=== PATIENT | female | born 1985 | race African-American/Black ===

== ENCOUNTER 2018-08-30 13:23 | Emergency (ER) | payer SELFPAY ==
--- NOTE | 2018-08-30 14:18 | PDOC ---
Rapid Medical Evaluation Time Seen by Provider: 08/30/18 14:15 Medical Evaluation: Allergies Allergy/AdvReac Type Severity Reaction Status Date / Time No Known Allergies Allergy Verified 11/13/13 15:10 08/30/18 14:15 I performed a brief in-person evaluation of this patient. Chief complaint: Heavy menstrual bleeding (8 pads today), weakness, dizziness, pelvic pain. Hx fibroids. I have ordered the following: CBC, CMP, PT/INR, T&S, serum preg, transvaginal u/ s Pertinent physical exam findings: Pale conjunctivae. RRR, S1/S2, clear lungs. Patient will proceed to the ED for further evaluation. Discharge Disposition - Diagnosis Vaginal bleeding - Referrals - Patient Instructions - Post Discharge Activity
[2018-08-30 14:19] VITALS: BMI 28.9
[2018-08-30 15:02] LABS: INR 1.03 (0.83-1.09); PROTHROMBIN TIME (PATIENT) 12.1 SEC (9.7-13.0)
[2018-08-30 15:15] LABS: BASO % 0.3 % (0-2.0); EOS % 0.2 % (0-4.5); HEMATOCRIT 30.3 % (32.4-45.2); HEMOGLOBIN 9.7 GM/dL (10.7-15.3); LYMPH % 8.3 % (8-40); MCH 20.5 pg (25.7-33.7); MCHC 31.9 g/dl (32.0-36.0); MEAN CELL VOLUME 64.3 fl (80-96); MEAN PLT VOLUME 8.9 fl (7.5-11.1); NEUT % 88.2 % (42.8-82.8); PLATELET COUNT 325 K/MM3 (134-434); RBC 4.71 M/mm3 (3.60-5.2); RDW 23.3 % (11.6-15.6); WHITE BLOOD COUNT 10.9 K/mm3 (4.0-10.0)
[2018-08-30 15:23] LABS: ALBUMIN 3.6 g/dl (3.4-5.0); ALK PHOS 60 U/L (45-117); ANION GAP 5 MMOL/L (8-16); BILIRUBIN,TOTAL 0.3 mg/dL (0.2-1); BLOOD UREA NITROGEN 14 mg/dL (7-18); CALCIUM 9.1 mg/dL (8.5-10.1); CHLORIDE 105 mmol/L (98-107); CO2 26 mmol/L (21-32); CREATININE 0.8 mg/dL (0.55-1.3); GLUCOSE,RANDOM 115 mg/dL (74-106); POTASSIUM 4.1 mmol/L (3.5-5.1); SGOT/AST 14 U/L (15-37); SGPT/ALT 17 U/L (13-61); SODIUM 136 mmol/L (136-145); TOT PROT 8.2 g/dl (6.4-8.2)
--- NOTE | 2018-08-30 15:28 | PDOC ---
History of Present Illness - General Chief Complaint: Pain Stated Complaint: ABD PAIN Time Seen by Provider: 08/30/18 14:15 - History of Present Illness Initial Comments: Мария Bee is a 33yo woman with a PMH of seasonal asthma and uterine fibroids s /p myomectomy (2013) who presents with return of her heavy menstrual bleeding, severe cramps, and unusual fatigue today. She states that after her procedure in 2013, her periods were much less severe and with less cramping. Over the past months, the severity of the bleeding and cramping has slowly increased. Currently, she has the heaviest bleeding that she has recently experienced and she felt lightheaded/weak today. She states that she started mestruating yesterday, but the bleeding was very light until about 2am. Since that time, she has soaked through at least one pad per hour. She went to work and felt that she could not keep her eyes open, so came to the ED. She is concerned that she is losing too much blood. Also, her cramping did not improve with extra-strength Tylenol. She has not followed up with gynecology due to lack of insurance. She previously saw Dr Aguirre but has neither primary care nor gynecology since that time. She denies any symptoms prior to today including fever/chills, abdominal pain, nausea/vomiting, change in bowel habits, or dysuria. Past History - Past Medical History Allergies/Adverse Reactions: Allergies Allergy/AdvReac Type Severity Reaction Status Date / Time No Known Allergies Allergy Verified 08/30/18 14:19 Home Medications: Ambulatory Orders NK [No Known Home Medication] 08/30/18 Anemia: Yes Asthma: Yes COPD: No Thyroid Disease: No Other medical history: FIBROIDS - Reproductive History Is Patient Now?: No (#): 1 Para: 0 Therapeutic (s) & number: Yes - Immunization History Immunization Up to Date: Yes - Suicide/Smoking/Psychosocial Hx Smoking History: Never smoked Have you smoked in the past 12 months: No Information on smoking cessation initiated: No Hx Alcohol Use: Yes (SOCIAL) Drug/Substance Use Hx: Yes (MARIJUANA) Substance Use Type: Alcohol Review of Systems - Review of Systems Comments:: General: No fevers, no chills, no weight or appetite change, no malaise HEENT: No changes in vision, no changes in hearing, no congestion, no sore throat CV: No chest pain, no palpitations, no LE edema Pulm: No SOB, no cough, no wheezing GI: No nausea or vomiting, no change in bowel habits, no melena : No frequency, no urgency, no dysuria. +fibroids, +heavy menstruation Musc: No back pain, no joint swelling, no recent injury Skin: No rash, no lesions, no erythema Endo: No excessive thirst, no heat/cold intolerance Heme: No unusual bruising or bleeding, no swollen glands Neuro: No syncope, no numbness/tingling, no focal weakness Vasc: No claudication Psych: No recent change in mood, no SI or HI *Physical Exam - Vital Signs Last Vital Signs Temp Pulse Resp BP Pulse Ox 98.1 F 82 18 137/82 100 08/30/18 14:15 08/30/18 14:15 08/30/18 14:15 08/30/18 14:15 08/30/18 14:15 - Physical Exam Comments: General: Comfortable, no acute distress HEENT: PERRL, EOMI, MMM, voice normal, normal neck ROM, no LAD Cards: RRR, no murmur appreciated Pulm: Comfortable on room air, clear to auscultation bilaterally Abd: Firm in midline in lower abdomen, no clear uterine borders palpated. Mildly TTP around umbilicus. : No CVA tenderness. Ext: Atraumatic. No LE edema. ROM intact. Strength 5/5 and equal bilaterally Vasc: Extremities WWP. Skin: Normal color, no rashes or lesions Neuro: A&Ox3, CN grossly intact, normal speech, motor/sensory grossly intact and symmetric Psych: Mood appropriate to situation Moderate Sedation - Procedure Monitoring Vital Signs: Procedure Monitoring Vital Signs Temperature 98.1 F 08/30/18 14:15 Pulse Rate 82 08/30/18 14:15 Respiratory Rate 18 08/30/18 14:15 Blood Pressure 137/82 08/30/18 14:15 O2 Sat by Pulse Oximetry (%) 100 08/30/18 14:15 ED Treatment Course - LABORATORY CBC & Chemistry Diagram: 08/30/18 14:35 08/30/18 14:35 - ADDITIONAL ORDERS Additional order review: Laboratory Results 08/30/18 14:35 PT with INR 12.10 INR 1.03 08/30/18 14:35 RBC 4.71 MCV 64.3 L MCHC 31.9 L RDW 23.3 H MPV 8.9 Neutrophils % 88.2 H D Lymphocytes % 8.3 D Monocytes % 3.0 L Eosinophils % 0.2 D Basophils % 0.3 Medical Decision Making - Medical Decision Making 08/30/18 15:21 Мария Bee is a 33yo woman with a PMH of seasonal asthma and uterine fibroids s /p myomectomy (2013) who presents with return of her heavy menstrual bleeding, severe cramps, and unusual fatigue today. She has not followed up with gynecology due to lack of insurance. - Labs ordered in [facility]. CBC completed, mild anemia with hbg 9.7. Baseline appears to be in the mid 10's per chart review. - Chemistry and serum pending - Has taken acetaminophen at home. If preg negative, will give ibuprofen for pain - Will need to complete vaginal exam 08/30/18 15:36 - Vaginal exam notable for dark blood consistent w/ menstruation. No cervical motion tenderness. No lesions, abrasions, or other sources of bleeding - test negative. Will give ibuprofen for continued pain - Chemistry without concerning abnormalities 08/30/18 16:54 - Bedside US completed by Dr Velez and Dr Ward. Enlarged uterus, likely fibroids - Sent for formal US 08/30/18 17:29 - US completed. Shows enlarged uterus with multiple fibroids - Urine sent to lab. Appears cloudy; culture ordered 08/30/18 18:24 - UA negative - Ms Bee feels significantly improved, minimal pain, ready to go home. - Will d/c home. Discussed home care, return precautions, follow up. Ms Bee states understanding and agreement with the plan. Discussed with Dr Culver. Archana Lugo PGY1 *DC/Admit/Observation/Transfer Diagnosis at time of Disposition: Vaginal bleeding, Leiomyoma - Discharge Dispostion Disposition: HOME Condition at time of disposition: Stable Decision to Admit order: No - Referrals Referrals: [facility] [place] [Provider Group] Yancy Aguirre MD [Staff Physician] - Tremaine Brar MD [Staff Physician] - - Patient Instructions Printed Discharge Instructions: DI for Uterine Fibroids Additional Instructions: Discharge Instructions: You were seen in the emergency department for heavy menstrual bleeding and abdominal cramping. You had blood tests showing mild anemia and an ultrasound showing several uterine fibroids Home Care and Follow Up: - You may use over the counter medications as needed for pain at home. 600mg ibuprofen (Motrin or Advil) or 650-1000mg acetaminophen (Tylenol) can be used every 6-8 hours. If needed for continued pain, these medications may be alternated every 3-4 hours. For example, you received ibuprofen at 9pm, so you may take acetaminophen at midnight, ibuprofen at 3am, acetaminophen at 6am. - Consider using a heating pad to help with your pain - You should follow up with OB within the next 1-2 weeks for evaluation. You have been referred to Dr Aguirre - You should also establish care with primary care. You have been referred to the [facility]. - Seek immediate medical care if your symptoms worsen, your pain is severe after taking medication, you soak through multiple menstrual pads in an hour, you have lightheadedness or fainting, or you have any medical emergency. - Post Discharge Activity Forms/Work/School Notes: Back to Work
[2018-08-30] MEDS ORDERED: IBUPROFEN 400 MG TABLET (FP) PO ONE ×2 (15:35→15:59)
[2018-08-30 15:40] LABS: ANISOCYTOSIS 2+; MACROCYTOSIS 0; PLATELET ESTIMATE NORMAL; TARGET CELLS 1+
--- NOTE | 2018-08-30 16:24 | PDOC ---
Attending Attestation - Resident Resident Name: Archana Lugo - HPI HPI: 08/30/18 16:27 The patient is a 33 year old female, with a significant past medical history of fibroids, who presents to the emergency department with heavy menstrual bleeding soaking 8 pads today with associated generalized weakness, dizziness, pelvic pain. The patient denies chest pain, shortness of breath, headache and dizziness. The patient denies fever, chills, nausea, vomit, diarrhea and constipation. The patient denies dysuria, frequency, urgency and hematuria. Allergies: NKDA <Ilsa Auguste - Last Filed: 08/30/18 16:27> - Physicial Exam PE: 08/30/18 16:53 vss palpable uterus above symphysis pubis, discomfort but no guarding/rebound. no cvat pelvic per resident - Medical Decision Making 08/30/18 16:54 33y/o F with h/o fibroids p/w menses and heavy bleeding, HD stable. 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
[2018-08-30 17:33] LABS: URINE APPEARANCE CLOUDY; URINE BILIRUBIN NEGATIVE (<2.0 mg/dL); URINE COLOR YELLOW; URINE GLUCOSE (UA) NEGATIVE (NEGATIVE); URINE KETONE NEGATIVE (NEGATIVE); URINE LEUK ESTERASE NEGATIVE (NEGATIVE); URINE NITRITE NEGATIVE (NEGATIVE); URINE PROTEIN 1+ (NEGATIVE); URINE UROBILINOGEN NEGATIVE mg/dL (0.2-1.0)
[2018-08-30 17:47] LABS: EPI CELLS RARE /HPF (FEW); URINE MUCUS RARE; YEAST FEW
[2018-08-30 18:23] VITALS: BP 126/74; PULSE 80; TEMP 98.6
== END 2018-08-30 18:24 | disposition home or self-care (01) ==
LOC: JER 13:23
DX: D25.9 Leiomyoma of uterus, unspecified (principal); N92.0 Excessive and frequent menstruation with regular cycle
CPT/HCPCS: 36415; 76830-TC; 80053; 81003; 81015; 84703; 85025; 85610; 86850; 86900; 86901; 87086; 99282-25

== ENCOUNTER 2020-08-31 02:47 | Inpatient (IN) | payer OTHER ==
[2020-08-31] MEDS ORDERED: methylPREDNISolone NA SUCC 125 MG/2 ML VIAL IVPUSH ONE (03:01)
[2020-08-31] MEDS ORDERED: RACEPINEPHRINE IH SOL 2.25% 11.25 MG/0.5 ML VIAL IH ONE (03:01)
[2020-08-31] MEDS ORDERED: MAGNESIUM SULF 50% (8.12 MEQ/2 ML-1 GM VIAL) IVPB ONE (03:01)
[2020-08-31 03:04] VITALS: BMI 29.1
[2020-08-31] MEDS ORDERED: methylPREDNISolone NA SUCC 125 MG/2 ML VIAL ONE (03:06)
[2020-08-31] MEDS ORDERED: RACEPINEPHRINE IH SOL 2.25% 11.25 MG/0.5 ML VIAL NEB ONE (03:06)
[2020-08-31] MEDS ORDERED: MAGNESIUM SULFATE IN WATER 2 GM/50 ML IVPB IVPB ONE (03:06)
[2020-08-31] MEDS: ALBUTEROL SO4 2.5/IPRATROPIUM 0.5 INH SOL 3 ML VIAL.NEB. NEB SCH ×8 (03:12→20:10)
[2020-08-31 03:18] LABS: MCHC 28.9 g/dl (32.0-36.0); MEAN CELL VOLUME 56.1 fl (80-96); MEAN PLT VOLUME 8.7 fl (7.5-11.1); PLATELET COUNT 408 K/MM3 (134-434); RBC 4.27 M/mm3 (3.60-5.2); RDW 20.3 % (11.6-15.6); WHITE BLOOD COUNT 11.9 K/mm3 (4.0-10.0)
[2020-08-31 03:27] LABS: MCH 16.2 pg (25.7-33.7)
[2020-08-31 03:29] LABS: HEMOGLOBIN 6.9 GM/dL (10.7-15.3)
[2020-08-31 03:33] LABS: POTASSIUM 3.7 mmol/L (3.5-5.1)
[2020-08-31 03:35] LABS: ALBUMIN 3.7 g/dl (3.4-5.0); CALCIUM 8.8 mg/dL (8.5-10.1)
[2020-08-31 03:36] LABS: BLOOD UREA NITROGEN 10.8 mg/dL (7-18)
[2020-08-31 03:39] LABS: CREATININE 0.9 mg/dL (0.55-1.3)
[2020-08-31 03:40] LABS: BILIRUBIN,TOTAL 0.6 mg/dL (0.2-1); TOT PROT 8.5 g/dl (6.4-8.2)
[2020-08-31 03:59] LABS: INR 1.08 (0.83-1.09)
[2020-08-31 04:02] LABS: ACTIVATED PTT 26.9 SECONDS (25.2-36.5)
[2020-08-31 04:38] LABS: ANISOCYTOSIS 1+; TARGET CELLS 1+
[2020-08-31] MEDS ORDERED: ALBUTEROL SO4 2.5/IPRATROPIUM 0.5 INH SOL 3 ML VIAL.NEB. NEB ONE ×2 (08:07→11:50)
[2020-08-31] MEDS ORDERED: AZITHROMYCIN IVPB 500 MG/250 ML BAG IVPB SCH (10:00)
[2020-08-31] MEDS ORDERED: ENOXAPARIN NA (PORCINE) 40 MG/0.4 ML DISP.SYRIN SQ SCH (10:00)
[2020-08-31 11:58] LABS: MAGNESIUM 1.8 mg/dL (1.8-2.4)
[2020-08-31 12:02] LABS: PHOSPHOROUS 3.1 mg/dL (2.5-4.9)
[2020-08-31] MEDS ORDERED: methylPREDNISolone NA SUCC 40 MG/1 ML VIAL ONE (12:05)
[2020-08-31] MEDS: methylPREDNISolone NA SUCC 40 MG/1 ML VIAL IVPUSH SCH ×2 (12:11→17:13)
[2020-08-31] MEDS: BUDESONIDE/FORMETEROL FUMARATE 160/4.5 mcg INHALER IH SCH ×2 (12:12→22:39)
[2020-08-31] MEDS ORDERED: ALBUTEROL SO4 HFA INHALER IH PRN (13:59)
[2020-08-31 15:35] LABS: HEMATOCRIT 27.5 % (32.4-45.2); HEMOGLOBIN 8.1 GM/dL (10.7-15.3); MCHC 29.5 g/dl (32.0-36.0); MEAN PLT VOLUME 8.8 fl (7.5-11.1); PLATELET COUNT 416 K/MM3 (134-434); RBC 4.66 M/mm3 (3.60-5.2); RDW 23.5 % (11.6-15.6); WHITE BLOOD COUNT 12.4 K/mm3 (4.0-10.0)
[2020-08-31 15:49] LABS: MCH 17.4 pg (25.7-33.7)
[2020-08-31] MEDS ORDERED: ACETAMINOPHEN 1000 MG/100 ML VIAL (NON FORMULARY) IVPB PRN (17:06)
[2020-08-31] MEDS ORDERED: MONTELUKAST NA 5 MG TAB.CHEW PO SCH (22:00)
[2020-08-31] MEDS: MONTELUKAST NA 10 MG TABLET PO SCH (22:39)
[2020-09-01] MEDS: methylPREDNISolone NA SUCC 40 MG/1 ML VIAL IVPUSH SCH ×3 (02:12→17:09)
[2020-09-01 06:47] LABS: HEMATOCRIT 29.8 % (32.4-45.2); HEMOGLOBIN 9.3 GM/dL (10.7-15.3); MCHC 31.2 g/dl (32.0-36.0); MEAN CELL VOLUME 60.7 fl (80-96); MEAN PLT VOLUME 8.5 fl (7.5-11.1); PLATELET COUNT 396 K/MM3 (134-434); RBC 4.91 M/mm3 (3.60-5.2); RDW 28.7 % (11.6-15.6)
[2020-09-01 06:52] LABS: MCH 18.9 pg (25.7-33.7)
[2020-09-01] MEDS: ALBUTEROL SO4 2.5/IPRATROPIUM 0.5 INH SOL 3 ML VIAL.NEB. NEB SCH ×4 (08:30→20:10)
[2020-09-01] MEDS: BUDESONIDE/FORMETEROL FUMARATE 160/4.5 mcg INHALER IH SCH ×2 (09:59→21:47)
[2020-09-01] MEDS: MONTELUKAST NA 10 MG TABLET PO SCH (21:48)
[2020-09-02] MEDS: methylPREDNISolone NA SUCC 40 MG/1 ML VIAL IVPUSH SCH ×3 (02:13→17:11)
[2020-09-02] MEDS ORDERED: PT OWN MED DRAWER 7, Y5N ONE (06:28)
[2020-09-02] MEDS ORDERED: CEFAZOLIN 2 GM in DEXTROSE 5%-WATER - 100 ML IVPB ONE (07:00)
[2020-09-02] MEDS: PHENAZOPYRIDINE HCL 100 MG TABLET (FP) PO SCH ×3 (07:25→18:24)
[2020-09-02 07:31] LABS: HEMOGLOBIN 9.2 GM/dL (10.7-15.3); MCHC 30.6 g/dl (32.0-36.0); MEAN CELL VOLUME 61.3 fl (80-96); MEAN PLT VOLUME 8.5 fl (7.5-11.1); PLATELET COUNT 367 K/MM3 (134-434); RBC 4.89 M/mm3 (3.60-5.2); RDW 28.1 % (11.6-15.6); WHITE BLOOD COUNT 13.6 K/mm3 (4.0-10.0)
[2020-09-02 07:34] LABS: MCH 18.7 pg (25.7-33.7)
[2020-09-02 07:52] LABS: POTASSIUM 4.5 mmol/L (3.5-5.1)
[2020-09-02 07:58] LABS: ALBUMIN 3.5 g/dl (3.4-5.0); BLOOD UREA NITROGEN 13.4 mg/dL (7-18); CALCIUM 9.4 mg/dL (8.5-10.1)
[2020-09-02 07:59] LABS: MAGNESIUM 2.4 mg/dL (1.8-2.4)
[2020-09-02 08:01] LABS: BILIRUBIN,TOTAL 0.7 mg/dL (0.2-1)
[2020-09-02 08:02] LABS: TOT PROT 8.4 g/dl (6.4-8.2)
[2020-09-02] MEDS: ALBUTEROL SO4 2.5/IPRATROPIUM 0.5 INH SOL 3 ML VIAL.NEB. NEB SCH ×4 (08:17→20:13)
[2020-09-02] MEDS: BUDESONIDE/FORMETEROL FUMARATE 160/4.5 mcg INHALER IH SCH ×2 (09:03→21:00)
[2020-09-02] MEDS: MONTELUKAST NA 10 MG TABLET PO SCH (21:00)
[2020-09-03] MEDS: methylPREDNISolone NA SUCC 40 MG/1 ML VIAL IVPUSH SCH ×3 (01:04→21:54)
[2020-09-03 07:21] LABS: HEMOGLOBIN 9.1 GM/dL (10.7-15.3); MCHC 30.3 g/dl (32.0-36.0); MEAN CELL VOLUME 61.5 fl (80-96); MEAN PLT VOLUME 8.7 fl (7.5-11.1); PLATELET COUNT 335 K/MM3 (134-434); RBC 4.88 M/mm3 (3.60-5.2); WHITE BLOOD COUNT 12.9 K/mm3 (4.0-10.0)
[2020-09-03 07:26] LABS: INR 1.04 (0.83-1.09); PROTHROMBIN TIME (PATIENT) 12.8 SEC (9.7-13.0)
[2020-09-03 07:29] LABS: ACTIVATED PTT 24.8 SECONDS (25.2-36.5)
[2020-09-03] MEDS ORDERED: CEFAZOLIN 2 GM/D5W 2 GM/50 ML ML IVPB ONE (07:30)
[2020-09-03 07:35] LABS: MCH 18.6 pg (25.7-33.7)
[2020-09-03 07:39] LABS: POTASSIUM 4.6 mmol/L (3.5-5.1)
[2020-09-03] MEDS: ALBUTEROL SO4 2.5/IPRATROPIUM 0.5 INH SOL 3 ML VIAL.NEB. NEB SCH ×5 (07:45→19:50)
[2020-09-03 08:08] LABS: ALBUMIN 3.4 g/dl (3.4-5.0)
[2020-09-03 08:09] LABS: BLOOD UREA NITROGEN 15.6 mg/dL (7-18); CALCIUM 9.5 mg/dL (8.5-10.1)
[2020-09-03 08:11] LABS: CREATININE 0.8 mg/dL (0.55-1.3)
[2020-09-03 08:13] LABS: BILIRUBIN,TOTAL 0.5 mg/dL (0.2-1)
[2020-09-03] MEDS ORDERED: MIDAZOLAM HCL 2 MG/2 ML SINGLE DOSE VIAL ONE ×4 (08:35→10:53)
[2020-09-03] MEDS: PHENAZOPYRIDINE HCL 100 MG TABLET (FP) PO SCH ×3 (09:00→17:35)
[2020-09-03] MEDS: BUDESONIDE/FORMETEROL FUMARATE 160/4.5 mcg INHALER IH SCH ×2 (09:01→21:53)
[2020-09-03] MEDS ORDERED: PROPOFOL 20 ML ONE ×3 (09:05→10:53)
[2020-09-03] MEDS ORDERED: SUCCINYLCHOLINE CHLORIDE 200 MG/10 ML SYRINGE ONE (09:05)
[2020-09-03] MEDS ORDERED: BUPIVACAINE HCL 50 ML ONE (09:07)
[2020-09-03] MEDS ORDERED: ceFAZolin SODIUM 1 GM VIAL IVPB ONE (09:24)
[2020-09-03] MEDS ORDERED: DEXAMETHASONE SOD PHOSPHATE 4 MG/1 ML VIAL ONE (10:07)
[2020-09-03] MEDS ORDERED: ACETAMINOPHEN INJECTION 100 ML IVPB ONE (10:52)
[2020-09-03] MEDS ORDERED: KETOROLAC TROMETHAMINE 30 MG/1 ML VIAL ONE (11:08)
[2020-09-03] MEDS ORDERED: ONDANSETRON 4 MG/2 ML VIAL IVPUSH PRN ×2 (11:47→12:01)
[2020-09-03] MEDS ORDERED: oxyCODONE HCL 5 MG TABLET PO PRN ×3 (11:47→12:01)
[2020-09-03] MEDS ORDERED: traMADol HCL 50 MG TABLET PO PRN ×2 (11:47→12:01)
[2020-09-03] MEDS ORDERED: ACETAMINOPHEN 325 MG TABLET (FP) PO SCH (12:00)
[2020-09-03] MEDS ORDERED: LACTATED RINGERS SOLUTION 1,000 ML IV SCH ×2 (12:00→12:01)
[2020-09-03] MEDS ORDERED: ALBUTEROL SO4 HFA INHALER IH PRN (12:01)
[2020-09-03] MEDS: oxyCODONE HCL 5 MG TABLET PO PRN (14:15)
[2020-09-03 15:58] LABS: HEMATOCRIT 27.6 % (32.4-45.2); HEMOGLOBIN 8.5 GM/dL (10.7-15.3); MCH 20.3 pg (25.7-33.7); MCHC 30.9 g/dl (32.0-36.0); MEAN CELL VOLUME 65.8 fl (80-96); MEAN PLT VOLUME 8.4 fl (7.5-11.1); PLATELET COUNT 283 K/MM3 (134-434); RDW 31.9 % (11.6-15.6); WHITE BLOOD COUNT 28.8 K/mm3 (4.0-10.0)
[2020-09-03] MEDS: ACETAMINOPHEN 325 MG TABLET (FP) PO SCH ×2 (17:03→23:49)
[2020-09-03] MEDS: PANTOPRAZOLE 40 MG TABLET PO SCH (17:35)
[2020-09-03] MEDS ORDERED: methylPREDNISolone NA SUCC 40 MG/1 ML VIAL IVPUSH SCH (18:00)
[2020-09-03] MEDS: MONTELUKAST NA 10 MG TABLET PO SCH (21:53)
[2020-09-04] MEDS: ACETAMINOPHEN 325 MG TABLET (FP) PO SCH ×3 (05:39→17:11)
[2020-09-04] MEDS: ALBUTEROL SO4 2.5/IPRATROPIUM 0.5 INH SOL 3 ML VIAL.NEB. NEB SCH ×4 (07:35→20:20)
[2020-09-04 07:43] LABS: HEMATOCRIT 24.3 % (32.4-45.2); HEMOGLOBIN 7.6 GM/dL (10.7-15.3); MCH 20.5 pg (25.7-33.7); MCHC 31.3 g/dl (32.0-36.0); MEAN CELL VOLUME 65.4 fl (80-96); MEAN PLT VOLUME 8.5 fl (7.5-11.1); PLATELET COUNT 224 K/MM3 (134-434); RBC 3.72 M/mm3 (3.60-5.2); RDW 31.8 % (11.6-15.6); WHITE BLOOD COUNT 17.1 K/mm3 (4.0-10.0)
[2020-09-04 08:21] LABS: POTASSIUM 4.3 mmol/L (3.5-5.1)
[2020-09-04 08:26] LABS: CALCIUM 8.5 mg/dL (8.5-10.1)
[2020-09-04 08:27] LABS: BLOOD UREA NITROGEN 11.3 mg/dL (7-18); MAGNESIUM 2.2 mg/dL (1.8-2.4)
[2020-09-04 08:30] LABS: CREATININE 0.7 mg/dL (0.55-1.3); PHOSPHOROUS 4.7 mg/dL (2.5-4.9)
[2020-09-04 08:31] LABS: BILIRUBIN,TOTAL 0.6 mg/dL (0.2-1)
[2020-09-04 08:34] LABS: ALBUMIN 2.6 g/dl (3.4-5.0); TOT PROT 5.9 g/dl (6.4-8.2)
[2020-09-04] MEDS: PANTOPRAZOLE 40 MG TABLET PO SCH (09:13)
[2020-09-04] MEDS: methylPREDNISolone NA SUCC 40 MG/1 ML VIAL IVPUSH SCH (09:13)
[2020-09-04] MEDS: BUDESONIDE/FORMETEROL FUMARATE 160/4.5 mcg INHALER IH SCH ×2 (09:16→22:26)
[2020-09-04 18:35] LABS: HEMATOCRIT 25.8 % (32.4-45.2); MCH 20.2 pg (25.7-33.7); MCHC 30.8 g/dl (32.0-36.0); MEAN CELL VOLUME 65.7 fl (80-96); MEAN PLT VOLUME 8.8 fl (7.5-11.1); PLATELET COUNT 234 K/MM3 (134-434); RBC 3.93 M/mm3 (3.60-5.2); RDW 31.7 % (11.6-15.6); WHITE BLOOD COUNT 17.3 K/mm3 (4.0-10.0)
[2020-09-04] MEDS: MONTELUKAST NA 10 MG TABLET PO SCH (22:24)
[2020-09-05] MEDS: ACETAMINOPHEN 325 MG TABLET (FP) PO SCH ×5 (03:00→23:59)
[2020-09-05 07:50] LABS: HEMATOCRIT 24.4 % (32.4-45.2); HEMOGLOBIN 7.4 GM/dL (10.7-15.3); MCH 20.2 pg (25.7-33.7); MCHC 30.4 g/dl (32.0-36.0); MEAN CELL VOLUME 66.4 fl (80-96); MEAN PLT VOLUME 8.9 fl (7.5-11.1); PLATELET COUNT 206 K/MM3 (134-434); RBC 3.67 M/mm3 (3.60-5.2); RDW 32.8 % (11.6-15.6); WHITE BLOOD COUNT 14.7 K/mm3 (4.0-10.0)
[2020-09-05] MEDS: ALBUTEROL SO4 2.5/IPRATROPIUM 0.5 INH SOL 3 ML VIAL.NEB. NEB SCH ×4 (07:57→20:39)
[2020-09-05] MEDS ORDERED: IRON SUCROSE INJECTION 200 MG in SODIUM CHLORIDE 90 ML IVPB ONE (08:25)
[2020-09-05] MEDS: PANTOPRAZOLE 40 MG TABLET PO SCH (09:12)
[2020-09-05] MEDS: predniSONE 20 MG TABLET (UD) PO SCH (09:12)
[2020-09-05] MEDS: BUDESONIDE/FORMETEROL FUMARATE 160/4.5 mcg INHALER IH SCH ×2 (10:07→21:36)
[2020-09-05] MEDS: MONTELUKAST NA 10 MG TABLET PO SCH (21:36)
[2020-09-06] MEDS: ACETAMINOPHEN 325 MG TABLET (FP) PO SCH ×3 (01:20→12:14)
[2020-09-06] MEDS: ALBUTEROL SO4 2.5/IPRATROPIUM 0.5 INH SOL 3 ML VIAL.NEB. NEB SCH ×4 (08:20→20:47)
[2020-09-06] MEDS: predniSONE 20 MG TABLET (UD) PO SCH (09:57)
[2020-09-06] MEDS: PANTOPRAZOLE 40 MG TABLET PO SCH (09:57)
[2020-09-06] MEDS: BUDESONIDE/FORMETEROL FUMARATE 160/4.5 mcg INHALER IH SCH ×2 (09:57→21:05)
[2020-09-06] MEDS ORDERED: IRON SUCROSE INJECTION 100 MG in SODIUM CHLORIDE 95 ML IVPB ONE (11:24)
[2020-09-06 11:50] LABS: BASO % 0.1 % (0-2.0); EOS % 1.2 % (0-4.5); HEMATOCRIT 22.2 % (32.4-45.2); LYMPH % 20.9 % (8-40); MCH 20.7 pg (25.7-33.7); MCHC 31.5 g/dl (32.0-36.0); MEAN CELL VOLUME 65.9 fl (80-96); MEAN PLT VOLUME 8.5 fl (7.5-11.1); MONO % 11.6 % (3.8-10.2); NEUT % 66.2 % (42.8-82.8); PLATELET COUNT 196 K/MM3 (134-434); RBC 3.37 M/mm3 (3.60-5.2); RDW 32.3 % (11.6-15.6)
[2020-09-06 13:38] LABS: ANISOCYTOSIS 3+; MACROCYTOSIS 1+; OVALOCYTE 1+; PLATELET ESTIMATE NORMAL; TARGET CELLS 1+
[2020-09-06] MEDS: MONTELUKAST NA 10 MG TABLET PO SCH (21:04)
[2020-09-07] MEDS: oxyCODONE HCL 5 MG TABLET PO PRN (05:02)
[2020-09-07 07:30] LABS: HEMATOCRIT 26.3 % (32.4-45.2); HEMOGLOBIN 8.2 GM/dL (10.7-15.3); LYMPH % 18.6 % (8-40); MCHC 31.2 g/dl (32.0-36.0); MEAN CELL VOLUME 70.3 fl (80-96); MEAN PLT VOLUME 9.2 fl (7.5-11.1); NEUT % 72.4 % (42.8-82.8); PLATELET COUNT 225 K/MM3 (134-434); RBC 3.74 M/mm3 (3.60-5.2); WHITE BLOOD COUNT 19.8 K/mm3 (4.0-10.0)
[2020-09-07 08:07] LABS: POTASSIUM 3.7 mmol/L (3.5-5.1)
[2020-09-07 08:09] LABS: BLOOD UREA NITROGEN 12.2 mg/dL (7-18); CALCIUM 8.3 mg/dL (8.5-10.1)
[2020-09-07 08:13] LABS: CREATININE 0.7 mg/dL (0.55-1.3)
[2020-09-07] MEDS: ALBUTEROL SO4 2.5/IPRATROPIUM 0.5 INH SOL 3 ML VIAL.NEB. NEB SCH ×2 (08:30→12:40)
[2020-09-07] MEDS: PANTOPRAZOLE 40 MG TABLET PO SCH (09:37)
[2020-09-07] MEDS: BUDESONIDE/FORMETEROL FUMARATE 160/4.5 mcg INHALER IH SCH (09:42)
[2020-09-07 11:28] LABS: ANISOCYTOSIS 1+; MACROCYTOSIS 0; OVALOCYTE 1+; PLATELET ESTIMATE NORMAL; TARGET CELLS 1+
[2020-09-07 14:12] VITALS: BP 121/47; PULSE 88; TEMP 97.8
== END 2020-09-07 15:11 | disposition home or self-care (01) | DRG 951 ==
LOC: JER 02:47 → JERBED 05:07 → J7W 12:30
PROVIDERS: ADMIT Internal Medicine
PROC: 30233N1 Transfusion of Nonautologous Red Blood Cells into Peripheral Vein, Percutaneous Approach (ICD-10-PCS; 2020-08-31)
PROC: 30233N1 Transfusion of Nonautologous Red Blood Cells into Peripheral Vein, Percutaneous Approach (ICD-10-PCS; 2020-09-03)
PROC: 0UT90ZZ Resection of Uterus, Open Approach (ICD-10-PCS; principal; 2020-09-03 08:30)
PROC: 0UT50ZZ Resection of Right Fallopian Tube, Open Approach (ICD-10-PCS; 2020-09-03 08:30)
DX: J45.51 Severe persistent asthma with (acute) exacerbation (principal); D25.9 Leiomyoma of uterus, unspecified; D50.9 Iron deficiency anemia, unspecified; N93.9 Abnormal uterine and vaginal bleeding, unspecified; D62 Acute posthemorrhagic anemia; E66.9 Obesity, unspecified; Z68.31 Body mass index [BMI] 31.0-31.9, adult
CPT/HCPCS: 36415; 36430; 36511; 71045-TC-FY; 76830-TC; 76856-TC; 80048; 80053; 82272; 82728; 83540; 83550; 83735; 84100; 85025; 85027; 85610; 85730; 86850; 86900; 86901; 86922; 88302-TC; 88307-TC; 93005; 93010; 94010; 94640; 94760; 99285-25; C9803; J0131; J1756; P9038; P9058; U0003

== ENCOUNTER 2021-06-15 12:07 | Inpatient (IN) | payer OTHER ==
[2021-06-15] MEDS ORDERED: DEXAMETHASONE LIQUID 0.5 MG/5 ML PO ONE (13:55)
[2021-06-15] MEDS ORDERED: DEXAMETHASONE SOD PHOSPHATE 10 MG/1 ML VIAL ONE ×2 (13:56→14:20)
[2021-06-15] MEDS: ALBUTEROL SO4 2.5/IPRATROPIUM 0.5 INH SOL 3 ML VIAL.NEB. NEB SCH ×3 (14:30→19:34)
[2021-06-15] MEDS ORDERED: MAGNESIUM SULF 50% (8.12 MEQ/2 ML-1 GM VIAL) IVPB ONE (18:24)
[2021-06-15] MEDS ORDERED: MAGNESIUM SULFATE IN WATER 2 GM/50 ML IVPB IVPB ONE (19:20)
[2021-06-15] MEDS ORDERED: ALBUTEROL SO4 0.083% IH SOL 2.5 MG/3 ML VIAL.NEB. NEB ONE ×2 (21:15→23:01)
[2021-06-15] MEDS: ALBUTEROL SO4 0.083% IH SOL 2.5 MG/3 ML VIAL.NEB. NEB PRN ×2 (21:18→23:04)
[2021-06-15 21:40] LABS: HEMOGLOBIN 15.2 GM/dL (10.7-15.3); MCH 26.7 pg (25.7-33.7); MCHC 33.7 g/dl (32.0-36.0); MEAN CELL VOLUME 79.3 fl (80-96); MEAN PLT VOLUME 8.5 fl (7.5-11.1); PLATELET COUNT 296 10^3/uL (134-434); RBC 5.68 M/mm3 (3.60-5.2); RDW 14.3 % (11.6-15.6); WHITE BLOOD COUNT 10.1 K/mm3 (4.0-10.0)
[2021-06-15 21:44] LABS: CALCIUM 9.6 mg/dL (8.5-10.1)
[2021-06-15 21:45] LABS: ALBUMIN 3.8 g/dl (3.4-5.0); BLOOD UREA NITROGEN 8.5 mg/dL (7-18)
[2021-06-15 21:49] LABS: BILIRUBIN,TOTAL 0.4 mg/dL (0.2-1); TOT PROT 8.7 g/dl (6.4-8.2)
[2021-06-15 22:47] LABS: ANISOCYTOSIS 0; MACROCYTOSIS 0; PLATELET ESTIMATE NORMAL
[2021-06-16] MEDS ORDERED: ALBUTEROL SO4 0.083% IH SOL 2.5 MG/3 ML VIAL.NEB. NEB SCH (00:30)
[2021-06-16] MEDS ORDERED: ALBUTEROL SO4 0.083% IH SOL 2.5 MG/3 ML VIAL.NEB. NEB ONE (01:09)
[2021-06-16] MEDS ORDERED: ALBUTEROL SO4 0.083% IH SOL 2.5 MG/3 ML VIAL.NEB. NEB PRN (02:17)
[2021-06-16 03:16] VITALS: BMI 32.1
[2021-06-16] MEDS: ENOXAPARIN NA (PORCINE) 40 MG/0.4 ML DISP.SYRIN SQ SCH (09:32)
[2021-06-16] MEDS: BUDESONIDE/FORMETEROL FUMARATE 160/4.5 mcg INHALER IH SCH ×2 (10:00→22:09)
[2021-06-16] MEDS ORDERED: predniSONE 20 MG TABLET (UD) PO SCH (10:00)
[2021-06-16 10:01] LABS: BASO % 0.1 % (0-2.0); HEMATOCRIT 46.2 % (32.4-45.2); HEMOGLOBIN 15.2 GM/dL (10.7-15.3); LYMPH % 12.6 % (8-40); MCH 26.4 pg (25.7-33.7); MEAN PLT VOLUME 8.5 fl (7.5-11.1); MONO % 8.9 % (3.8-10.2); NEUT % 78.4 % (42.8-82.8); PLATELET COUNT 313 10^3/uL (134-434); RBC 5.77 M/mm3 (3.60-5.2); RDW 14.3 % (11.6-15.6); WHITE BLOOD COUNT 12.3 K/mm3 (4.0-10.0)
[2021-06-16 10:33] LABS: BLOOD UREA NITROGEN 11.3 mg/dL (7-18); CALCIUM 9.9 mg/dL (8.5-10.1)
[2021-06-16 10:36] LABS: CREATININE 0.9 mg/dL (0.55-1.3)
[2021-06-16] MEDS: ALBUTEROL SO4 2.5/IPRATROPIUM 0.5 INH SOL 3 ML VIAL.NEB. NEB SCH ×3 (11:15→20:01)
[2021-06-16] MEDS: methylPREDNISolone NA SUCC 40 MG/1 ML VIAL IVPUSH SCH (17:13)
[2021-06-16] MEDS ORDERED: MONTELUKAST NA 5 MG TAB.CHEW PO SCH (22:00)
[2021-06-16] MEDS: MONTELUKAST NA 10 MG TABLET PO SCH (22:09)
[2021-06-17] MEDS: methylPREDNISolone NA SUCC 40 MG/1 ML VIAL IVPUSH SCH ×3 (02:23→21:06)
[2021-06-17] MEDS: ALBUTEROL SO4 2.5/IPRATROPIUM 0.5 INH SOL 3 ML VIAL.NEB. NEB SCH ×4 (08:10→20:10)
[2021-06-17 09:17] LABS: BASO % 0.1 % (0-2.0); HEMATOCRIT 46.5 % (32.4-45.2); HEMOGLOBIN 15.5 GM/dL (10.7-15.3); LYMPH % 13.7 % (8-40); MCH 26.5 pg (25.7-33.7); MCHC 33.2 g/dl (32.0-36.0); MEAN CELL VOLUME 79.8 fl (80-96); MEAN PLT VOLUME 8.4 fl (7.5-11.1); MONO % 3.6 % (3.8-10.2); NEUT % 82.6 % (42.8-82.8); PLATELET COUNT 335 10^3/uL (134-434); RBC 5.83 M/mm3 (3.60-5.2); RDW 14.6 % (11.6-15.6); WHITE BLOOD COUNT 13.6 K/mm3 (4.0-10.0)
[2021-06-17] MEDS: ENOXAPARIN NA (PORCINE) 40 MG/0.4 ML DISP.SYRIN SQ SCH (10:53)
[2021-06-17] MEDS: BUDESONIDE/FORMETEROL FUMARATE 160/4.5 mcg INHALER IH SCH ×2 (10:53→21:08)
[2021-06-17] MEDS: MONTELUKAST NA 10 MG TABLET PO SCH (21:08)
[2021-06-18 05:55] VITALS: BP 133/62; PULSE 74; TEMP 98
[2021-06-18] MEDS: ALBUTEROL SO4 2.5/IPRATROPIUM 0.5 INH SOL 3 ML VIAL.NEB. NEB SCH ×2 (08:30→11:30)
[2021-06-18] MEDS ORDERED: PT OWN MED DRAWER 7, Y5N ONE (09:43)
[2021-06-18] MEDS: methylPREDNISolone NA SUCC 40 MG/1 ML VIAL IVPUSH SCH (09:46)
[2021-06-18] MEDS: BUDESONIDE/FORMETEROL FUMARATE 160/4.5 mcg INHALER IH SCH (09:47)
[2021-06-18] MEDS: ENOXAPARIN NA (PORCINE) 40 MG/0.4 ML DISP.SYRIN SQ SCH (09:47)
== END 2021-06-18 13:41 | disposition home or self-care (01) | DRG 141 ==
LOC: JER 12:07 → INTOOBSV 18:25 → JERBED 18:25 → J6S 06-16 01:52 → OBSVTOIN 06-16 12:01 → J8W 06-16 19:24
PROVIDERS: ADMIT Hospitalist
DX: J45.901 Unspecified asthma with (acute) exacerbation (principal)
CPT/HCPCS: 36415; 71046-TC-FY; 80048; 80053; 85025; 87804; 93005; 93010; 94150; 94640; 99285-25; C9803; G0378; U0003; U0005

== ENCOUNTER 2024-09-12 06:26 | Day surgery (SDC) | payer OTHER ==
[2024-09-09 16:30] VITALS: BMI 35.7
[2024-09-12] MEDS ORDERED: LIDOCAINE HCL 2% JELLY 11 ML TP ONE (07:51)
[2024-09-12] MEDS ORDERED: KETOROLAC TROMETHAMINE 30 MG/1 ML VIAL ONE (07:54)
[2024-09-12] MEDS ORDERED: ACETAMINOPHEN INJECTION 100 ML ONE (08:36)
[2024-09-12 09:19] VITALS: BP 118/67; PULSE 75; RESP 18; TEMP 98.3
== END 2024-09-12 09:20 | disposition home or self-care (01) ==
LOC: JASU-ENDO 06:26
PROVIDERS: ATTEND Internal Medicine Gastroenterology
PROC: 06LY8CC Occlusion of Hemorrhoidal Plexus with Extraluminal Device, Via Natural or Artificial Opening Endoscopic (ICD-10-PCS; principal; 2024-09-12 08:00)
DX: Z12.11 Encounter for screening for malignant neoplasm of colon (principal); K64.9 Unspecified hemorrhoids